=== PATIENT | male | born 1985 | race American Indian/Alaskan Native ===

== ENCOUNTER 2017-07-12 06:27 | Emergency (ER) | payer OTHER ==
[2017-07-12 06:37] VITALS: RESP 18; TEMP 98; O2SAT 99
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
[2017-07-12 09:34] VITALS: BP 125/74; PULSE 66
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
== END 2017-07-12 09:34 | disposition home or self-care (01) ==
LOC: H.ER 06:27
DX: S40.012A Contusion of left shoulder, initial encounter (principal); V43.52XA Car driver injured in collision with other type car in traffic accident, initial encounter; Y92.410 Unspecified street and highway as the place of occurrence of the external cause; Y99.0 Civilian activity done for income or pay
CPT/HCPCS: 71020; 73030; 73060; 96372; 99284; J1885